=== PATIENT | female | born 1960 | race Hispanic/Latino ===

== ENCOUNTER 2018-01-22 15:44 | Emergency (ER) | payer SELFPAY ==
[2018-01-22] MEDS ORDERED: IBUPROFEN 600 MG TABLET ONE (16:52)
== END 2018-01-22 18:46 | disposition home or self-care (01) ==
LOC: EDH 15:44
DX: S80.01XA Contusion of right knee, initial encounter (principal); S00.01XA Abrasion of scalp, initial encounter; Y04.2XXA Assault by strike against or bumped into by another person, initial encounter; Y93.89 Activity, other specified; Y92.238 Other place in hospital as the place of occurrence of the external cause; Y99.8 Other external cause status
CPT/HCPCS: 73562

== ENCOUNTER → 2018-03-11 | Outpatient (CLI) | payer BC | END | disposition home or self-care (01) | LOC: OIH 03-08 13:06 | PROVIDERS: ATTEND Internal Medicine | DX: J45.40 Moderate persistent asthma, uncomplicated (principal) | CPT/HCPCS: 71046 ==